=== PATIENT | male | born 1945 | race Caucasian/White ===

== ENCOUNTER → 2019-07-07 10:56 | Outpatient (CLI) | payer MEDICARE | END | disposition home or self-care (01) | LOC: D.MRI 10:56 | PROVIDERS: ATTEND Family Medicine | DX: H54.61 Unqualified visual loss, right eye, normal vision left eye (principal) ==

== ENCOUNTER → 2019-07-21 08:05 | Outpatient (CLI) | payer MEDICARE | END | disposition home or self-care (01) | LOC: D.CT 08:05 | PROVIDERS: ATTEND Family Medicine | DX: I65.23 Occlusion and stenosis of bilateral carotid arteries (principal) ==

== ENCOUNTER → 2019-08-27 09:27 | Outpatient (CLI) | payer MEDICARE ==
--- NOTE | 2019-08-29 08:51 | EC ---
PATIENT:NEAL KEITH DATE OF SERVICE: 08/27/19 SEX: M MEDICAL RECORD: [id number] DATE OF : 49 [facility] AGE OF PATIENT: 74 ADMISSION DATE: 08/27/19 REFERRING PHYSICIAN: INTERPRETING PHYSICIAN: ARVIN SILVA MD ECHOCARDIOGRAM REPORT ECHO CHARGES 4 ECHO COMPLETE Date: 08/27/19 CLINICAL DIAGNOSIS: TIA ECHOCARDIOGRAPHIC MEASUREMENTS (adult normal given) AC root (d.<3.7cm) 2.9 cm LV Septum d (<1.2 cm> 0.7 cm Valve Excursion 1.7 cm LV Septum (systole) 0.8 cm Left Atria (s.<4.0cm> 4.1 cm LVPW d(<1.2cm) 0.9 cm RV (d.<2.3cm) 3.5 cm LVPW (sytole) 1.0 cm LV diastole(<5.6CM) 5.0 cm MV E-F(>70mm/sec) cm LV systole 4.2 cm LVOT Diameter 1.7 cm MV exc.(>10mm) cm Est.ejection fraction (50-75%) % DOPPLER: LVIT cm/sec A 74 cm/sec E 77 cm/sec LA cm/sec RVSP 21.3 mmHg LVOT 109 cm/sec AOP1/2T m/s Asc. 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 Alexander TAPE# PACS Pericardial Effusion N DATE OF SERVICE: Adequate 2D, color flow imaging, spectral Doppler, and M-Mode No LVH. LV internal dimension is normal. Wall motion is normal. EF is greater than or equal to 55%. Aortic valve is tricuspid. No evidence of stenosis by Doppler interrogation. Left atrium is minimally dilated at 4.1 cm. Mitral valve shows no prolapse. Trace MR. Right-sided chambers are grossly normal. Trace TR. ECHOCARDIOGRAM REPORT [id number] NEAL KEITH TRANSINT:[id number] Voice Confirmation ID: [id number] DOCUMENT ID: [id number] ARVIN SILVA MD at 0851 CC: [id number] DICTATION DATE: 08/28/19 1424 CHILD WELFARE SOCIAL WORKER: 08/28/19 1509 DEP CLI 08/27/19 [id number] [place] [id number]
== END | disposition home or self-care (01) ==
LOC: D.ECHO 08:00 → D.MRI 10:00
PROVIDERS: ATTEND Psychiatry & Neurology Neurology
DX: G45.9 Transient cerebral ischemic attack, unspecified (principal); Z86.73 Personal history of transient ischemic attack (TIA), and cerebral infarction without residual deficits

== ENCOUNTER → 2019-11-20 15:03 | Outpatient (CLI) | payer MEDICARE ==
[2019-11-20 17:01] LABS: T4 THYROXIN - FREE 1.1 ng/dL (0.76-1.46); THYROID STIMULATING HORMONE 1.55 uIU/mL (0.36-3.74)
== END | disposition home or self-care (01) ==
LOC: D.LAB 15:03
PROVIDERS: ATTEND Psychiatry & Neurology Neurology
DX: F03.90 Unspecified dementia, unspecified severity, without behavioral disturbance, psychotic disturbance, mood disturbance, and anxiety (principal)

== ENCOUNTER → 2019-12-24 08:42 | Outpatient (CLI) | payer MEDICARE | END | disposition home or self-care (01) | LOC: D.CT 08:42 | PROVIDERS: ATTEND Family Medicine | DX: R22.1 Localized swelling, mass and lump, neck (principal) ==